=== PATIENT | female | born 1960 | race Caucasian/White ===

== ENCOUNTER → 2017-10-11 09:10 | Outpatient (CLI) | payer OTHER, SELFPAY | PROVIDERS: Family Provider Student in an Organized Health Care Education/Training Program; PCP Student in an Organized Health Care Education/Training Program; Visit Provider Nurse Practitioner Adult Health | DX: R00.2 Palpitations (principal) | CPT/HCPCS: 93225; 93226 ==

== ENCOUNTER 2020-07-13 15:12 | Emergency (ER) | payer OTHER, SELFPAY ==
[2020-07-13 15:14] VITALS: BP 151/87; PULSE 60; RESP 18; TEMP 36.4; O2SAT 100; BMI 26.9
[2020-07-13 15:46] VITALS: BP 132/82; PULSE 62; RESP 14; O2SAT 100
--- NOTE | 2020-07-13 15:46 | EKG12_ITS ---
Test Reason : SYNCOPE Blood Pressure : / mmHG Vent. Rate : 073 BPM Atrial Rate : 073 BPM P-R Int : 176 ms QRS Dur : 094 ms QT Int : 386 ms P-R-T Axes : 060 058 073 degrees QTc Int : 425 ms Somatic / Motion Artifact Normal sinus rhythm Normal ECG Confirmed by BESSY HERNÁNDEZ, EUNICE ([id number]), brands editor SAMMI RODRIGUEZ ([id number]) on 07/16/2020 10:58:38 AM Referred By: Confirmed By:EUNICE DOHERTY MD
[2020-07-13 15:56] LABS: Absolute Lymphocyte Count 1.94 X10^3/uL (0.83-4.51); Absolute Neutrophil Count 2.6 X10^3/uL (2.0-7.7); Basophil# 0.04 X10^3/uL; Basophil% 0.8 % (0-1); Eosinophil# 0.22 X10^3/uL; Eosinophils% 4.1 % (0-5); Hematocrit 39.8 % (37-47); Hemoglobin 12.5 g/dL (12.0-15.0); Lymphocyte # 1.94 X10^3/ul (4.0); Lymphocyte % 36.4 % (19-41); Mean Corp Hgb Conc 31.4 g/dL (32-36); Mean Corpuscular Hgb 29.6 pg (27.0-32.0); Mean Corpuscular Volume 94.1 fL (81-99); Mean Platelet Vol. 9.2 fl (6.2-12.0); Monocyte# 0.56 X10^3/uL; Monocyte% 10.5 % (0-10); NRBC Flagged by Analyzer 0 % (0-5); Neutrophil # 2.56 X10^3/uL (2.7-7.7); Platelet Count 278 K/mm3 (150-450); RBC Distribution Width CV 12.2 % (11.6-14.6); RBC Distribution Width SD 42.5 fl (35.1-43.9); Red Blood Count 4.23 M/mm3 (4.2-5.4); White Blood Count 5.3 K/mm3 (4.4-11.0)
[2020-07-13 16:15] LABS: Anion Gap 4 (5-15); BUN 17 mg/dL (7-18); BUN/Creat Ratio 21.2 RATIO (10-20); Calcium,Total 8.8 mg/dL (8.5-10.1); Chloride 108 mmol/L (98-107); EST Glomerular Filtration Rate 78 mL/min (>60); Est Glom Filt Rate - Afr Amer 95 mL/min (>60); Estimated Creatinine Clearance 82.89 ml/min; Glucose 88 mg/dL (74-106); Potassium 4.2 mmol/L (3.5-5.1); Sodium Level 140 mmol/L (136-145); Thyroid Stim Hormone (TSH) 0.43 uIU/mL (0.358-3.74)
--- NOTE | 2020-07-13 16:15 | RAD_ITS ---
STUDY: X-RAY CHEST REASON FOR EXAM: Female, 60 years old. PALPITATIONS AND DIZZINESS SINCE LAST NIGHT -- HX OF MITRAL VALVE PROLAPSE TECHNIQUE: Single AP portable view of the chest. COMPARISON: None. FINDINGS: EKG leads project over the chest. The lungs are clear and expanded. There is no demonstrated pleural abnormality. Normal size heart. Normal mediastinum and chrissy. Normal visualized pulmonary arteries. Normal visualized aortic arch and descending thoracic aorta. Normal visualized thoracic spine. There is an old right clavicle fracture. There is no demonstrated abnormality of the visualized soft tissue structures of the upper abdomen. RAD/Chest 1 View (Portable) IMPRESSION: Nonacute portable x-ray examination of the chest. Electronically Signed: Franki Artis MD (Brooks) at 16:40 EST , Service support ,
--- NOTE | 2020-07-13 17:04 | ED.DCSUM_ITS ---
- ER Visit Summary Date of Service: 07/13/20 Chief Complaint: Palpitations History of Present Illness: The patient is a 60 F presenting with palpitations. Patient states that she feels like her heart rhythm has an extra beat. This started last night. She has had intermittent episodes of this in the past. She states she was drinking beer yesterday which made her symptoms more prominent. She had mild dizziness with no syncope. She denies chest pain or chest pressure. Denies shortness of breath. Denies fever or cough. Denies other complaints. Physical Examination: Vitals are stable. Patient is afebrile. Alert no acute distress. Pulse 60. Pulse ox 100% on room air. HEENT exam is unremarkable. Neck is supple. Lungs are clear and equal bilaterally. Heart is regular rate and rhythm. Abdomen is soft nontender nondistended. Extremities are unremarkable. Skin is warm and dry. No focal neurologic deficit. Remainder of exam is unremarkable. Emergency Department Course and Treatment: Chest x-ray read by myself and radiology shows no acute process. EKG is sinus rhythm rate of 73 with no acute ischemic changes. CBC, chemistries unremarkable. Troponin is negative. TSH is normal. Patient is resting comfortably on reevaluation. Advised to follow-up with her primary care physician. Advised return to ED for worsening complaints. Disposition: Discharge home Impression: Palpitations This note was generated with [employer] dictation software. It may contain incorrect words, spelling, and punctuation that were not noted in review of the chart prior to signing ED Disposition - Plan for ED Patient: Instructions: ED Palpitations Referrals: Donovan Ashley DO [Primary Care Provider] -
[2020-07-13 17:21] VITALS: BP 114/82; PULSE 63; RESP 17; O2SAT 99
== END 2020-07-13 17:23 | disposition home or self-care (01) ==
PROVIDERS: Emergency Provider Emergency Medicine; PCP Student in an Organized Health Care Education/Training Program
DX: R00.2 Palpitations (principal); R42 Dizziness and giddiness; Z87.891 Personal history of nicotine dependence
CPT/HCPCS: 71045; 80048; 84443; 84484; 85025; 93005; 99285; A4216

== ENCOUNTER 2023-10-17 14:48 | Emergency (ER) | payer OTHER, SELFPAY ==
[2023-10-17 14:49] VITALS: BP 130/76; PULSE 79; RESP 14; TEMP 36.6; O2SAT 97; BMI 25.4
--- NOTE | 2023-10-17 15:04 | EKG12_ITS ---
Test Reason : IRREGULAR Blood Pressure : / mmHG Vent. Rate : 068 BPM Atrial Rate : 068 BPM P-R Int : 150 ms QRS Dur : 090 ms QT Int : 380 ms P-R-T Axes : 054 049 060 degrees QTc Int : 404 ms Normal sinus rhythm Normal ECG Confirmed by TRACY HERNÁNDEZ, YARIEL ([id number]), book or script editor ANGIE FENTON ([id number]) on 10/20/2023 11:34:45 AM Referred By: Confirmed By:YARIEL MOLINA MD
--- NOTE | 2023-10-17 15:08 | EDS_ITS ---
HPI <SERGEI Ruiz - Last Filed: 10/17/23 19:10> History of Present Illness Chief Complaint: Palpitations Narrative Narrative: Patient presenting today with concerns for palpitations. She reports that she has had these intermittently over the last several years. She has had a vehicle monitor technician as well as stress test and echocardiogram within the last 2 years that came back unremarkable. Over the past few days the palpitations have been worse, she reports that she will feel her pulse stop and then start again quickly. She does drink about 3 cups of coffee per day and works as a middle school pe teacher and has been stressed recently as it is nearing the end of the school year. She reports, I think my A-fib is acting up. However, she denies any history of being diagnosed with A-fib. When asked why she thinks she has that she reports, because I have palpitations. She denies any recent illness, fevers, chills, chest pain, and shortness of breath. She reports a PMH of hypothyroidism. PFSH <SERGEI Ruiz - Last Filed: 10/17/23 19:10> PFSH Home Medications levothyroxine 88 mcg tablet 88 mcg PO DAILY 07/13/20 [History Last Taken Unknown] Allergy/AdvReac Type Severity Reaction Status Date / Time Penicillins [PCN] Allergy Rash Verified 10/17/23 14:50 Social History Smoking Status: Former smoker ROS <SERGEI Ruiz - Last Filed: 10/17/23 19:10> ROS ED Constitutional Constitutional ED: Denies chills or fever(s) Cardiovascular Cardiovascular: Reports palpitations; Denies chest pain Respiratory/Chest Respiratory/Chest: Denies cough or dyspnea Gastrointestinal Gastrointestinal: Denies abdominal pain, nausea or vomiting Musculoskeletal Musculoskeletal: Denies arthralgias or myalgias Integumentary Denies rash Neurologic Neurologic: Denies weakness EXAM <SERGEI Ruiz - Last Filed: 10/17/23 19:10> Physical Exam Const Vital Signs: 10/17/23 14:49 10/17/23 16:05 Temperature 98 F 98 F Temperature Source Temporal Pulse Rate 79 76 Respiratory Rate 14 16 Blood Pressure 130/76 H 107/83 H Blood Pressure Mean 94 91 Pulse Ox 97 99 Oxygen Delivery Method Room Air Positive well nourished, well developed and no apparent distress General Appearance ED: well developed HEENT Reports normocephalic and head/scalp atraumatic Mouth ED: Yes moist mucous membranes normal Eyes PERRL and EOMs intact bilaterally Neck full ROM and supple Chest Wall inspection of chest normal Resp normal respiratory effort and clear to auscultation bilaterally Cardio regular rate and regular rhythm GI soft to palpation, non-tender, non-distended and no masses Back/Spine normal ROM and normal to inspection Extremity normal to inspection and full ROM Neuro oriented x3, CN's II-XII intact bilaterally, moves all extremities, no focal motor deficits and no sensory deficits noted Sensorium / Orientation: awake and alert Psych mental status grossly normal and thought process normal Skin no rashes or lesions noted and no wounds <Dr. Parminder Arguelles MD - Last Filed: 10/17/23 19:21> Physical Exam Const Vital Signs: 10/17/23 14:49 10/17/23 16:05 Temperature 98 F 98 F Temperature Source Temporal Pulse Rate 79 76 Respiratory Rate 14 16 Blood Pressure 130/76 H 107/83 H Blood Pressure Mean 94 91 Pulse Ox 97 99 Oxygen Delivery Method Room Air MDM <SERGEI Ruiz - Last Filed: 10/17/23 19:10> [facility] MDM Narrative Medical decision making narrative: Patient presenting due to palpitations. She is well-appearing and in no acute distress. Vitals are unremarkable. EKG is normal sinus rhythm, no arrhythmia identified on the monitor. Cardiac workup will be obtained as well as a TSH. Labs overall are unremarkable. Chest x-ray negative for any acute findings. I did recommend she lower her caffeine intake. I encouraged that she follow-up with her PCP. She will be discharged home in stable condition and is comfortable with plan. I have personally performed a face to face assessment of the patient and have reviewed the DELTA Note. I performed a substantive portion of the visit including all aspects of the following. My tejada findings include: History is remarkable for palpitations. Patient is had this for several years based on review of prior records. Patient's last Holter there is available for my review to [facility] was 2017 and was unremarkable. Patient denies chest discomfort, dyspnea, diaphoresis or nausea and vomiting with this episode. Patient did not check her pulse. She does have a Fitbit on. There is a program on her phone log me to look at her heart rate. Since midnight her heart rate is very between 52 and 96. Also able to look at 30-day average. Patient's heartbeat has never been fast over that 30-day. Exam is findings remarkable slight elevation of blood pressure. HEENT is grossly unremarkable. Heart is regular. Rate is normal. There are no murmur, gallop or rub. Lungs clear auscultation. Patient appears in no distress. Medical Decision Making initially unable to access heartbeat and obtain TSH to assess for hyperthyroidism. BMP to assess for hypokalemia and raise concern for ventricular premature beats. Patient does have history of hypothyroidism. Her levothyroxine dose has not been changed recently. Other additions or changes: [None] Lab Data Attestation: I reviewed the patient's lab results. Labs: Laboratory Results - last 24 hr 10/17/23 15:09 WBC 5.1 RBC 4.11 L Hgb 12.3 Hct 37.0 MCV 90.0 MCH 29.9 MCHC 33.2 RDW Std Deviation 40.8 RDW Coeff of Claude 12.4 Plt Count 237 MPV 9.6 Immature Gran % (Auto) 0.200 Neut % (Auto) 48.1 Lymph % (Auto) 34.7 [place] % (Auto) 12.1 H Eos % (Auto) 3.9 Baso % (Auto) 1.0 Absolute Neuts (auto) 2.5 Absolute Lymphs (auto) 1.78 Nucleated RBC % 0 Sodium 138 Potassium 4.0 Chloride 108 H Carbon Dioxide 25.0 Anion Gap 5 BUN 17 Creatinine 0.78 Estim Creat Clear Calc 79.15 Est GFR (MDRD) Af Amer 96 Est GFR (MDRD) Non-Af 79 BUN/Creatinine Ratio 21.7 H Glucose 103 Calcium 9.2 Troponin I High Sens 4 TSH 0.57 Radiography X-Ray: Read by ED Physician and Read by Radiologist Diagnostic Testing: Clinical Impression(s) from Imaging Studies Chest X-Ray 10/17/23 15:10 IMPRESSION: Hyperinflation. Findings suggest mild scarring at the lung bases. Electronically Signed: Omid Johnson MD at 15:28 EDT , EKG Initial EKG: Comments: 60 bpm, normal sinus rhythm, no ST elevation, reviewed and interpreted by attending ED physician <Dr. Parminder Arguelles MD - Last Filed: 10/17/23 19:21> [facility] Narrative Medical decision making narrative: Patient presenting due to palpitations. She is well-appearing and in no acute distress. Vitals are unremarkable. EKG is normal sinus rhythm, no arrhythmia identified on the monitor. Cardiac workup will be obtained as well as a TSH. I have personally performed a face to face assessment of the patient and have reviewed the DELTA Note. I performed a substantive portion of the visit including all aspects of the following. My tejada findings include: History is remarkable for palpitations. Patient is had this for several years based on review of prior records. Patient's last Holter there is available for my review to [facility] was 2016 and was unremarkable. Patient denies chest discomfort, dyspnea, diaphoresis or nausea and vomiting with this episode. Patient did not check her pulse. She does have a Fitbit on. There is a program on her phone log me to look at her heart rate. Since midnight her heart rate is very between 52 and 96. Also able to look at 30-day average. Patient's heartbeat has never been fast over that 30-day. Exam is findings remarkable slight elevation of blood pressure. HEENT is grossly unremarkable. Heart is regular. Rate is normal. There are no murmur, gallop or rub. Lungs clear auscultation. Patient appears in no distress. Medical Decision Making initially unable to access heartbeat and obtain TSH to assess for hyperthyroidism. BMP to assess for hypokalemia and raise concern for ventricular premature beats. Patient does have history of hypothyroidism. Her levothyroxine dose has not been changed recently. Other additions or changes: [None] History & Record Review Additional record(s) reviewed:: Prior outpatient record (Holter monitor as noted in the [facility] portion of the medical record), Prior ED visit (Seen by Dr. Johnna Haynes for palpitations in the past with negative workup) and Prior labs Lab Data Labs: Laboratory Results - last 24 hr 10/17/23 15:09 WBC 5.1 RBC 4.11 L Hgb 12.3 Hct 37.0 MCV 90.0 MCH 29.9 MCHC 33.2 RDW Std Deviation 40.8 RDW Coeff of Claude 12.4 Plt Count 237 MPV 9.6 Immature Gran % (Auto) 0.200 Neut % (Auto) 48.1 Lymph % (Auto) 34.7 [place] % (Auto) 12.1 H Eos % (Auto) 3.9 Baso % (Auto) 1.0 Absolute Neuts (auto) 2.5 Absolute Lymphs (auto) 1.78 Nucleated RBC % 0 Sodium 138 Potassium 4.0 Chloride 108 H Carbon Dioxide 25.0 Anion Gap 5 BUN 17 Creatinine 0.78 Estim Creat Clear Calc 79.15 Est GFR (MDRD) Af Amer 96 Est GFR (MDRD) Non-Af 79 BUN/Creatinine Ratio 21.7 H Glucose 103 Calcium 9.2 Troponin I High Sens 4 TSH 0.57 Radiography Diagnostic Testing: Clinical Impression(s) from Imaging Studies Chest X-Ray 10/17/23 15:10 IMPRESSION: Hyperinflation. Findings suggest mild scarring at the lung bases. Electronically Signed: Omid Johnson MD at 15:28 EDT , Discharge Plan Triage Chief Complaint: Palpitations ED Midlevel Provider: Jacquelyn Mari ED Provider: Parminder Arguelles Dx/Rx/DC Orders Clinical Impression: Palpitations Instructions: ED Palpitations Prescriptions: No Action levothyroxine 88 MCG tablet 88 mcg PO DAILY Primary Care Provider: Donovan Ashley Referrals: Donovan Ashley DO [Primary Care Provider] - Activity Restrictions/Additional Instructions: Follow-up with your PCP and return for any worsening of your symptoms. Disposition Disposition: Home, Self Care Discharge Date/Time: 10/17/23 16:07
--- NOTE | 2023-10-17 15:10 | RAD_ITS ---
STUDY: X-RAY CHEST REASON FOR EXAM: Female, 63 years old. Palpitations TECHNIQUE: PA and lateral views of the chest. COMPARISON: Comparison is made with prior study dated January 10, 2021. FINDINGS: EKG electrodes are seen. Mild scarring at the lung bases more prominent on the right side. Hyperinflation. There is no demonstrated pleural abnormality. Normal size heart. Normal mediastinum and chrissy. Normal visualized pulmonary arteries. There is atherosclerotic calcification of the aortic arch with tortuosity. There are degenerative changes of the visualized thoracic spine. Normal visualized ribs, clavicles, and shoulders. There is no demonstrated abnormality of the visualized soft tissue structures of the upper abdomen. RAD/Chest PA and Lateral IMPRESSION: Hyperinflation. Findings suggest mild scarring at the lung bases. Electronically Signed: Omid Johnson MD at 15:28 EDT ,
[2023-10-17 15:25] LABS: Absolute Lymphocyte Count 1.78 X10^3/uL (0.83-4.51); Absolute Neutrophil Count 2.5 X10^3/uL (2.0-7.7); Basophil# 0.05 X10^3/uL; Eosinophils% 3.9 % (0-5); Hemoglobin 12.3 g/dL (12.0-15.0); Lymphocyte # 1.78 X10^3/ul (0.83-4.51); Lymphocyte % 34.7 % (19-41); Mean Corp Hgb Conc 33.2 g/dL (32-36); Mean Corpuscular Hgb 29.9 pg (27.0-32.0); Mean Platelet Vol. 9.6 fl (6.2-12.0); Monocyte# 0.62 X10^3/uL; Monocyte% 12.1 % (0-10); NRBC Flagged by Analyzer 0 % (0-5); Neutrophil # 2.47 X10^3/uL (2.7-7.7); Neutrophil % 48.1 % (47-70); Platelet Count 237 K/mm3 (150-450); RBC Distribution Width CV 12.4 % (11.6-14.6); RBC Distribution Width SD 40.8 fl (35.1-43.9); Red Blood Count 4.11 M/mm3 (4.2-5.4); White Blood Count 5.1 K/mm3 (4.4-11.0)
[2023-10-17 15:52] LABS: Anion Gap 5 (5-15); BUN 17 mg/dL (7-18); BUN/Creat Ratio 21.7 RATIO (10-20); Calcium,Total 9.2 mg/dL (8.5-10.1); Chloride 108 mmol/L (98-107); Creatinine, Serum 0.78 mg/dL (0.55-1.02); EST Glomerular Filtration Rate 79 mL/min (>60); Est Glom Filt Rate - Afr Amer 96 mL/min (>60); Estimated Creatinine Clearance 79.15 ml/min; Glucose 103 mg/dL (74-106); Sodium Level 138 mmol/L (136-145); Thyroid Stim Hormone (TSH) 0.57 uIU/mL (0.358-3.74); Troponin-I HS 4 pg/mL (3.0-54.0)
[2023-10-17 16:05] VITALS: BP 107/83; PULSE 76; RESP 16; TEMP 36.6; O2SAT 99
== END 2023-10-17 16:07 | disposition home or self-care (01) ==
PROVIDERS: Physician Assistant; Emergency Provider Emergency Medicine; PCP Student in an Organized Health Care Education/Training Program; Visit Provider Emergency Medicine
DX: R00.2 Palpitations (principal); Z87.891 Personal history of nicotine dependence; E03.9 Hypothyroidism, unspecified; Z79.899 Other long term (current) drug therapy
CPT/HCPCS: 71046; 80048; 84443; 84484; 85025; 93005; 99283; A4216